=== PATIENT | male | born 1975 | race Caucasian/White ===

== ENCOUNTER 2017-09-07 07:20 | Emergency (ER) | payer MEDICAID ==
[~2017-09-07] VITALS: Ht 172.7 cm; Wt 68.2 kg
[2017-09-07] MEDS ORDERED: HYDROCODONE/ACETAMINOPHEN 5-325 MG TABLET PO ONE (07:45)
[2017-09-07] MEDS ORDERED: CefTRIAXone SODIUM 1 GM/VIAL IM ONE (08:30)
[2017-09-07] MEDS ORDERED: LIDOCAINE HCL/PF 1% 2 ML VIAL IM ONE (08:30)
[2017-09-07] MEDS ORDERED: AZITHROMYCIN 250 MG TABLET PO ONE (08:30)
[2017-09-07 10:37] LABS: APPEARANCE,URINE CLEAR (CLEAR); GLUCOSE, URINE (UA) 250 mg/dL (NEGATIVE); KETONES,URINE NEGATIVE (NEGATIVE); LEUKOCYTE ESTERASE ,URINE TRACE (NEGATIVE); OCCULT BLOOD,URINE NEGATIVE (NEGATIVE); PROTEIN,URINE NEGATIVE (NEGATIVE)
[2017-09-07 10:48] LABS: RBC,URINE 0-2 /HPF (0-2)
[2017-09-07 10:49] LABS: SQUAMOUS EPITHELIAL CELL,UR Rare /LPF (None Seen)
[2017-09-07 10:58] VITALS: BP 140/60
[2017-09-11 09:27] LABS: GC DNA N.A. AMPLIFY Negative (Negative)
== END 2017-09-07 11:01 | disposition home or self-care (01) ==
LOC: EMS 07:22
DX: N45.1 Epididymitis (principal); F12.90 Cannabis use, unspecified, uncomplicated; Z77.22 Contact with and (suspected) exposure to environmental tobacco smoke (acute) (chronic)
CPT/HCPCS: 76870; 81001; 87086; 87491; 87591; 96372; 99285; 99406; J0696; J3490